=== PATIENT | male | born 1975 | race Caucasian/White ===

== ENCOUNTER 2022-07-30 10:43 | Day surgery (SDC) | payer OTHER ==
[2022-07-25 16:02] LABS: BASOPHILS # (AUTO) 0.1 X10'3 (0-0.2); BASOPHILS % (AUTO) 1.2 % (0-1); EOSINOPHILS # (AUTO) 0.3 X10'3 (0-0.9); EOSINOPHILS % (AUTO) 4.1 % (0-6); LYMPHOCYTES # (AUTO) 3.6 X10'3 (1.1-4.8); LYMPHOCYTES % (AUTO) 43.1 % (21-51); MEAN CORPUSCULAR HEMOGLOBIN 31.3 PG (27.0-31.0); MEAN CORPUSCULAR HGB CONC 33.1 g/dL (33.0-36.5); MEAN CORPUSCULAR VOLUME 94.6 FL (78-98); MEAN PLATELET VOLUME 8.8 FL (7.4-10.4); MONOCYTES # (AUTO) 0.9 X10'3 (0-0.9); MONOCYTES % (AUTO) 10.3 % (2-12); NEUTROPHILS # (AUTO) 3.4 X10'3 (1.8-7.7); NEUTROPHILS % (AUTO) 41.3 % (42-75); PRE OP HEMOGLOBIN 15.9 g/dL (14.0-17.9); PRE OP PLATELET COUNT 167 X10'3 (140-440); RED BLOOD COUNT 5.07 X10'6 (4.70-6.10); RED CELL DISTRIBUTION WIDTH 14.3 % (11.5-14.5)
[2022-07-25 16:20] LABS: ALBUMIN 4.3 G/DL (3.4-5.0); ALBUMIN/GLOBULIN RATIO 1.3 (1.1-1.5); ALKALINE PHOSPHATASE 109 IU/L (46-116); BLOOD UREA NITROGEN 12 MG/DL (7-18); BUN/CREATININE RATIO 11.7 (5.4-32.0); CALCIUM 9.6 MG/DL (8.5-10.1); CHLORIDE 105 MMOL/L (99-107); CREATININE 1.03 MG/DL (0.60-1.10); PRE OP ALT 71 U/L (30-65); PRE OP ANION GAP 8 (8-16); PRE OP AST 40 U/L (10-37); PRE OP GLUCOSE 98 MG/DL (70-104); PRE OP POTASSIUM 4.1 MMOL/L (3.4-5.1); PRE OP SODIUM 138 MMOL/L (135-145); TOTAL CARBON DIOXIDE 24.6 MMOL/L (24-32); TOTAL PROTEIN 7.7 G/DL (6.4-8.2); eGFR 77 ML/MIN
[~2022-07-30] VITALS: Ht 180.3 cm; Wt 106.5 kg
[2022-07-30] VITALS (12 sets, daily range): BP systolic 111–163; BP diastolic 68–105
[~2022-07-30 10:43] MED LIST: NO HOME MEDS; clindamycin-Cleocin 900mg/D5W 50 ML IV ONE; famotidine 20mg tablet PO ONE; ringers solution, lacted 1,000 ML IV SCH
[2022-07-30] MEDS ORDERED: LIDOcaine 1% (10mg/ml) 2ml vial ONE (12:16)
[2022-07-30] MEDS ORDERED: BUPIVAcaine/PF 2.5mg/ml (0.25%) 10ml vial ONE ×2 (13:21→13:48)
[2022-07-30] MEDS ORDERED: BUPIVACAINE liposomal/PF 13.3 MG/ML vial IM ONE (13:21)
[2022-07-30] MEDS ORDERED: sevoflurane 250ml liquid IH ONE (13:31)
[2022-07-30] MEDS ORDERED: fentaNYL/PF 50MCG/1 ML 2ML syringe ONE (13:33)
[2022-07-30] MEDS ORDERED: midazolam 1 mg/ML 2ml injection ONE (13:33)
[2022-07-30] MEDS ORDERED: propofol inj 20 ML IV ONE (13:33)
[2022-07-30] MEDS ORDERED: rocuronium 10mg/ml inj IV ONE (13:33)
[2022-07-30] MEDS ORDERED: LIDOcaine 1% 30ml preserv. free vial ONE (13:48)
[2022-07-30] MEDS ORDERED: labetalol 20mg/4ml (5mg/ml) syringe IV ONE (14:08)
[2022-07-30] MEDS ORDERED: ondansetron/PF 4mg/2ml inj ONE (14:09)
[2022-07-30] MEDS ORDERED: dexamethasone sod phosphate 4mg/ml inj. ONE (14:09)
[2022-07-30] MEDS ORDERED: ondansetron/PF 4mg/2ml inj IV PRN (14:15)
[2022-07-30] MEDS ORDERED: morphine 2 MG/ML inj. syringe IV PRN (14:15)
[2022-07-30] MEDS ORDERED: morphine 4 MG/ML inj SYRINge IV PRN (14:15)
[2022-07-30] MEDS ORDERED: proCHLORperazine 10 MG/2 ml inj IV PRN (14:15)
[2022-07-30] MEDS ORDERED: ringers solution, lacted 1,000 ML IV SCH (14:15)
[2022-07-30] MEDS ORDERED: meperidine/PF 25mg/ml syringe IV PRN ×3 (14:15)
[2022-07-30] MEDS ORDERED: labetalol 20mg/4ml (5mg/ml) syringe IV PRN (14:15)
[2022-07-30] MEDS ORDERED: glycopyrrolate 0.2mg/ml inj ONE (14:37)
[2022-07-30] MEDS ORDERED: neostigmine methylsulfate 1 MG/ML 10ml vial ONE (14:37)
--- NOTE | 2022-07-30 14:55 | NUR ---
Received from OR via [facility], accompanied by Anesthesiologist DR CABRERA and report given by Anesthesiolgist. PT IS GROGGY BUT RESPONDS APPROPRIATELY TO VERBAL STIMULI. PT PLACED ON BEDSIDE MONITOR, VSS. PT IS IN SR WITH RATE IN 80'S. PT RECEIVING 8L O2 TO MASK AND TOLERATING WELL, O2 SAT > 96%. WILL TITRATE DOWN PT TOLERATES. PT HAS 20G PIV TO RT WRIST WITH LR INFUSING ORDERED. PT HAS DRSG TO UMBILICUS THAT IS CDI. PT STATES HE IS PAINFUL, WILL VERIFY ORDERS TREAT PAIN AND CONTINUE TO ASSESS
[2022-07-30] MEDS ORDERED: oxyCODONE/APAP 5-325mg tablet PO PRN (15:05)
[2022-07-30] MEDS ORDERED: acetaminophen 1,000mg/100ml IV 100 ML IV ONE (15:25)
--- NOTE | 2022-07-30 16:25 | NUR ---
PT OFF MONITOR TO GET DRESSED. WILL CONTINUE TO ASSESS
--- NOTE | 2022-07-30 17:02 | NUR ---
ALL DISCHARGE CRITERIA HAS BEEN MET. VSS, PAIN AT A TOLERABLE LEVEL AND ABLE TO SAFELY AMBULATE AND TRANSFER SELF. IV TAKEN OUT WITHOUT ANY COMPLICATIONS. ALL DISCHARGE INSTRUCTIONS COVERED WITH PATIENT AND ALL QUESTIONS ANSWERED. PATIENT TAKEN OUT VIA WHEELCHAIR TO PERSONAL VEHICLE WHERE SON IN-LAW DROVE PATIENT HOME.
== END 2022-07-30 16:57 | disposition home or self-care (01) ==
LOC: PAS 10:43
PROVIDERS: ATTEND Surgery
DX: K42.9 Umbilical hernia without obstruction or gangrene (principal); Z79.899 Other long term (current) drug therapy; Z98.890 Other specified postprocedural states; F17.210 Nicotine dependence, cigarettes, uncomplicated; Z88.0 Allergy status to penicillin
CPT/HCPCS: 36415; 49652; 64488; 80053; 82948; 85025; 93005; C1781; C9290; J0131; J1100; J2175; J2250; J2270; J2405; J2704; J2710; J3010; J3490; J7030; J7120; S2900; Z7506; Z7508; Z7512; A4215; A4618

== ENCOUNTER 2022-10-08 12:54 | Emergency (ER) | payer BC, MEDICAID ==
[~2022-10-08] VITALS: Ht 180.3 cm; Wt 160.0 kg
[~2022-10-08 12:54] MED LIST changes: -clindamycin-Cleocin 900mg/D5W 50 ML IV ONE; -famotidine 20mg tablet PO ONE; -ringers solution, lacted 1,000 ML IV SCH
[2022-10-08 13:06] VITALS: BP 167/83
[2022-10-08 13:29] LABS: BASOPHILS # (AUTO) 0.1 X10'3 (0-0.2); BASOPHILS % (AUTO) 0.7 % (0-1); EOSINOPHILS # (AUTO) 0.4 X10'3 (0-0.9); EOSINOPHILS % (AUTO) 4.7 % (0-6); HEMATOCRIT 48.9 % (42.0-52.0); HEMOGLOBIN 16.3 g/dl (14.0-17.9); MEAN CORPUSCULAR HEMOGLOBIN 31.9 PG (27.0-31.0); MEAN CORPUSCULAR HGB CONC 33.4 g/dL (33.0-36.5); MEAN CORPUSCULAR VOLUME 95.5 FL (78-98); MEAN PLATELET VOLUME 8.9 FL (7.4-10.4); MONOCYTES # (AUTO) 0.9 X10'3 (0-0.9); MONOCYTES % (AUTO) 10.3 % (2-12); NEUTROPHILS # (AUTO) 4.2 X10'3 (1.8-7.7); NEUTROPHILS % (AUTO) 49.3 % (42-75); PLATELET COUNT 181 X10'3 (140-440); RED BLOOD COUNT 5.13 X10'6 (4.70-6.10); RED CELL DISTRIBUTION WIDTH 13.7 % (11.5-14.5); WHITE BLOOD COUNT 8.5 X10'3 (4.5-11.0)
[2022-10-08 13:41] LABS: ALANINE AMINOTRANSFERASE 82 U/L (12-78); ALBUMIN 4.1 G/DL (3.4-5.0); ALBUMIN/GLOBULIN RATIO 1.2 (1.1-1.5); ALKALINE PHOSPHATASE 105 IU/L (46-116); ANION GAP 11 (8-16); ASPARTATE AMINO TRANSFERASE 41 U/L (10-37); BILIRUBIN,TOTAL 0.9 MG/DL (0.1-1.0); BLOOD UREA NITROGEN 13 MG/DL (7-18); BUN/CREATININE RATIO 11.8 (5.4-32.0); CALCIUM 9.4 MG/DL (8.5-10.1); CHLORIDE 102 MMOL/L (99-107); GLUCOSE 138 MG/DL (70-104); LIPASE 83 U/L (73-393); POTASSIUM 3.9 MMOL/L (3.5-5.1); SODIUM 135 MMOL/L (135-145); TOTAL CARBON DIOXIDE 22.5 MMOL/L (24-32); TOTAL PROTEIN 7.5 G/DL (6.4-8.2); eGFR 71 ML/MIN
[2022-10-08 14:18] LABS: CLARITY,URINE CLEAR (Clear); COLOR,URINE YELLOW (Yellow)
[2022-10-08 14:19] LABS: GLUCOSE, URINE NEGATIVE (Neg); KETONES,URINE NEGATIVE (Neg); LEUKOCYTE ESTERASE ,URINE NEGATIVE (Neg); NITRITES, URINE NEGATIVE (Neg); OCCULT BLOOD,URINE NEGATIVE (Neg); PROTEIN,URINE NEGATIVE (Neg); UROBILINOGEN,URINE 0.2 E.U/dL (0.2-1.0)
[2022-10-08 14:32] LABS: UA COLLECTION TYPE VOIDED
[2022-10-08] MEDS ORDERED: ketorolac trometh. 30mg/ml inj. IV ONE (14:35)
== END 2022-10-08 16:37 | disposition home or self-care (01) ==
LOC: ER 12:54
DX: R10.31 Right lower quadrant pain (principal); K40.90 Unilateral inguinal hernia, without obstruction or gangrene, not specified as recurrent; Z98.890 Other specified postprocedural states; Z72.89 Other problems related to lifestyle; Z88.0 Allergy status to penicillin
CPT/HCPCS: 36415; 74176; 80053; 81003; 83690; 85025; 96374; 99284; J1885

== ENCOUNTER 2022-11-25 13:08 | Emergency (ER) | payer BC, MEDICAID ==
[~2022-11-25] VITALS: Ht 180.3 cm; Wt 109.1 kg
[2022-11-25 13:37] VITALS: BP 132/76
== END 2022-11-25 16:34 | disposition home or self-care (01) ==
LOC: ER 13:08
DX: U07.1 COVID-19 (principal); Z88.0 Allergy status to penicillin; Z79.899 Other long term (current) drug therapy
CPT/HCPCS: 87811; 99283

== ENCOUNTER → 2024-03-24 | Outpatient (CLI) | payer MEDICAID ==
[~2024-03-24] MED LIST changes: +iohexol 350MG/ML 100ml bottle IV ONE
== END | disposition home or self-care (01) ==
LOC: RAD 08:34
PROVIDERS: ATTEND Surgery
DX: M47.812 Spondylosis without myelopathy or radiculopathy, cervical region (principal); I65.23 Occlusion and stenosis of bilateral carotid arteries; M43.8X4 Other specified deforming dorsopathies, thoracic region
CPT/HCPCS: 70498; Q9967

== ENCOUNTER → 2024-03-31 | Outpatient (CLI) | payer MEDICAID ==
[~2024-03-31] MED LIST changes: -iohexol 350MG/ML 100ml bottle IV ONE
== END | disposition home or self-care (01) ==
LOC: VAS 08:34
PROVIDERS: ATTEND Physician Assistant
DX: I65.29 Occlusion and stenosis of unspecified carotid artery (principal)
CPT/HCPCS: 93925; 93978